=== PATIENT | female | born 1990 | race African-American/Black ===

== ENCOUNTER 2017-03-08 13:16 | Emergency (ER) | payer SELFPAY ==
[2017-03-08 14:01] LABS: #Eosinphils 0.2 thou/uL (0.0-0.7); #Lymphocytes 2.6 thou/uL (1.20-3.40); #Monocytes 0.5 thou/uL (0.11-0.59); #Neutrophils 4.2 thou/uL (1.40-6.50); %Basophils 0.2 % (0.0-1.0); %Eosinophils 2.3 % (0.0-10.0); %Lymphocytes 34.8 % (21.0-51.0); %Monocytes 6.5 % (0.0-10.0); Mean Platelet Volume 6.9 fL (7.4-10.4); Red Blood Cell (RBC) Count 3.22 mill/uL (4.20-5.40); White Blood Cell (WBC) Count 7.4 thou/uL (4.8-10.8)
[2017-03-08 14:29] LABS: Troponin I Less than 0.010 ng/mL (< 0.028)
[2017-03-08 15:20] LABS: AST (SGOT) 56 U/L (5-34); Anion Gap 11 mmol/L (10-20)
[2017-03-08 15:24] LABS: ALT (SGPT) 25 U/L (8-55); Alkaline Phosphatase 120 U/L (40-150); BUN (Urea Nitrogen) 7 mg/dL (7.0-18.7); Bilirubin, Total 0.2 mg/dL (0.2-1.2); CK (CPK) 2121 U/L (29-168); Calc. Creatinine Clearance 0 mL/min (70-130); Calcium 8.8 mg/dL (7.8-10.44); Carbon Dioxide 22 mmol/L (22-29); Chloride 107 mmol/L (98-107); Estimated GFR-MDRD Greater than 90; Globulin 3.1 g/dL (2.4-3.5); Lipase 35 U/L (8-78); Protein, Total 6.6 g/dL (6.0-8.3)
--- NOTE | 2017-03-08 15:44 | RAD ---
FRONTAL VIEW CHEST: Date: 03/08/17 No prior comparison. INDICATION: Chest pain. FINDINGS: The cardiac silhouette is accentuated by portable technique. No lobar consolidation, effusion, or pn eumothorax. Osseous structures are intact. IMPRESSION: No focal consolidation. POS: [facility]
--- NOTE | 2017-03-08 21:34 | CON ---
DATE OF CONSULTATION: 03/08/2017 PRIMARY CARE PHYSICIAN: She has been seeing Dr. Dickson before. CHIEF COMPLAINT: Chest pain. HISTORY OF PRESENT ILLNESS: Ms. Simpson is a pleasant 26-year-old female who has no significant [facility] medical history. She says that in the last couple of weeks, she has been having some chest pain off and on and she says that last night, she was arguing with someone and began having some pain in the left upper outer chest. She says it was primarily in the center, but under the left breast. Annika browne says it felt kind of tight and at that night, it was about a 10/10. There was no radiation and it lasted a few hours and then went away. She says that she again had it this morning, she relates it to feeling anxious and when she is under stress. She denies having any shortness of breath. There were no associated symptoms such as nausea, vomiting. There was no radiation. She says that she c reji to the ER to have it checked out. She denies also having any feeling of dizziness or lightheade dness and when she was in the ER, it was noted that she had an elevated CK of approximately 2000; ho wever, her troponin was negative and she had a normal EKG and there was consideration to admit her f or acute rhabdomyolysis. The patient currently has no complaints of any joint pains, no muscle ache s or muscle cramping. 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 She has not been lifting anything severely heavy recently and it seems to be about the usual amount of work that she normally does. S he does admit that sometimes it is out in the heat from time to time. Currently, the patient néstor esquivel feels fine, she may have just a little bit twinge pain in her chest, but otherwise no other comp laints. REVIEW OF SYSTEMS: Constitutional: There have been no fevers, chills, no night sweats, no weight l oss. HEENT: No headaches, no dizziness, no visual changes, no sore throat, no rhinorrhea, neck priscilla n, no adenopathy. Pulmonary: No hemoptysis, no cough, no wheezing. Cardiovascular: As the history of present illness. There is no PND, no orthopnea. No lower extrem ity edema. Gastrointestinal: No abdominal pain, no nausea, no vomiting, no change in bowels. Sosa tourinary: No urinary frequency, hematuria, no hesitancy. Neurologic: No focal weakness, numbness , no seizures. Psychiatric: She has had some anxiety symptoms, but no depression. PAST MEDICAL HISTORY: Negative. PAST SURGICAL HISTORY: Negative. ALLERGIES: To PENICILLIN. SOCIAL HISTORY: She smokes about 4 cigarettes a day and she has been smoking since age 16. She rar juany drinks. She denies any drug use. She is single. No children. FAMILY HISTORY: Significant for heart disease and diabetes as well as kidney failure. CURRENT MEDICATIONS: None and she denies any [id number] medications. She does say she takes an occasional Ambien to help her sleep. PHYSICAL EXAMINATION: GENERAL: She is alert and oriented. She appears to be in no acute distress. VITAL SIGNS: Blood pressure was 129/87, heart rate 74, respiratory rate of 18, temperature is 98.4. HEENT: Pupils are equal, round, and reactive. Extraocular muscles are intact. Sclerae are anicter ic. Throat no erythema, no exudates. NECK: No adenopathy, no bruits. LUNGS: Clear. There is no wheezing, no rales. CARDIOVASCULAR: She has a normal S1 and S2. There is no S3, no S4. No murmurs, clicks or rubs. ABDOMEN: Obese, it is soft, it is nontender, nondistended. Positive for bowel sounds. There is no rebound, no guarding. EXTREMITIES: There is no edema. MUSCULOSKELETAL: No muscle aches, no rashes. LABORATORY DATA AND X-RAY FINDINGS: EKG is sinus rhythm. There are no ST wave changes. Sodium 137 , potassium 3.9, chloride is 107, CO2 is 22, BUN of 7, creatinine 0.70, glucose is 85. CK was 2121. D-dimer was 0.33. White blood cell count 7.4, hemoglobin 8.1, hematocrit is 27, platelet count is 420. ASSESSMENT AND PLAN: This is a 26-year-old female who presents to the emergency room with some ches t pain. She says it is tightness and sometimes cramping in nature and she has a job that requires h eavy lifting on a regular basis. I suspect that she likely has developed some muscle strain with so me mild muscle injury and that would explain the elevation in the CK. She has already been given a liter of fluids here in the emergency room and she has normal renal function. Therefore, I think it is safe to discharge the patient from the emergency room with the precaution of continued hydration over the next few days, which can be done orally as the patient has no symptoms of nausea or vomiti ng and close follow up in the outpatient setting. She says even though she does not have a primary care doctor, she does have insurance and she says she can see Dr. Dickson who she had been seeing in the past. We will take her off work for the next couple of days to allow her some rest and to allo w her to rehydrate and again close follow up with her primary care physician and these instructions were all given to the patient in the ER.
== END 2017-03-08 17:35 | disposition home or self-care (01) ==
LOC: ERS 13:16
DX: M62.82 Rhabdomyolysis (principal); F31.9 Bipolar disorder, unspecified; F41.9 Anxiety disorder, unspecified; F17.210 Nicotine dependence, cigarettes, uncomplicated
CPT/HCPCS: 36415; 71010; 80053; 82553; 83690; 84484; 84703; 85025; 85379; 85652; 86140; 93005; 96360; 96361

== ENCOUNTER 2017-11-21 02:53 | Emergency (ER) | payer SELFPAY ==
[2017-11-21 03:37] LABS: #Basophils 0.1 thou/uL (0.0-0.2); #Eosinphils 0.1 thou/uL (0.0-0.7); #Lymphocytes 3.4 thou/uL (1.20-3.40); #Monocytes 0.6 thou/uL (0.11-0.59); #Neutrophils 3.4 thou/uL (1.40-6.50); %Basophils 1.1 % (0.0-1.0); %Eosinophils 1.9 % (0.0-10.0); %Lymphocytes 44.6 % (21.0-51.0); %Monocytes 7.5 % (0.0-10.0); Hemoglobin 9.6 g/dL (12.0-16.0); Mean Corpuscular HGB CONC 30.5 g/dL (32.0-36.0); Mean Corpuscular Hemoglobin 22.9 pg (27.0-31.0); Mean Corpuscular Volume 75.2 fL (78.0-98.0); Platelet Count 360 thou/uL (130-400); Red Blood Cell (RBC) Count 4.17 mill/uL (4.20-5.40); White Blood Cell (WBC) Count 7.6 thou/uL (4.8-10.8)
[2017-11-21 04:02] LABS: ALT (SGPT) 13 U/L (8-55); AST (SGOT) 16 U/L (5-34); Albumin 3.8 g/dL (3.5-5.0); Alkaline Phosphatase 104 U/L (40-150); Anion Gap 10 mmol/L (10-20); BUN (Urea Nitrogen) 9 mg/dL (7.0-18.7); Bilirubin, Total Less than 0.2 mg/dL (0.2-1.2); CK (CPK) 87 U/L (29-168); Calc. Creatinine Clearance 0 mL/min (70-130); Calcium 9.3 mg/dL (7.8-10.44); Carbon Dioxide 25 mmol/L (22-29); Chloride 107 mmol/L (98-107); Estimated GFR-MDRD Greater than 90; Globulin 2.7 g/dL (2.4-3.5); Glucose 97 mg/dL (70-105); Lipase 65 U/L (8-78); Potassium 3.9 mmol/L (3.5-5.1); Protein, Total 6.5 g/dL (6.0-8.3); Sodium 138 mmol/L (136-145)
[2017-11-21 04:05] LABS: CKMB 0.3 ng/mL (0-6.6); Troponin I Less than 0.010 ng/mL (< 0.028)
[2017-11-21] MEDS ORDERED: Ketorolac Tromethamine 60 MG/2 ML VIAL ONE (04:17)
== END 2017-11-21 04:41 | disposition home or self-care (01) ==
LOC: ERS 02:53
DX: F43.0 Acute stress reaction (principal); F41.9 Anxiety disorder, unspecified; F31.9 Bipolar disorder, unspecified; F17.210 Nicotine dependence, cigarettes, uncomplicated
CPT/HCPCS: 36415; 80053; 82553; 83690; 84484; 85025; 93005; 96372; J1885

== ENCOUNTER 2018-08-25 14:32 | Emergency (ER) | payer SELFPAY ==
--- NOTE | 2018-08-25 15:59 | RAD ---
FEXAM:Right foot 3 views HISTORY: Foot pain x2 weeks. Medial foot pain no known injury. COMPARISON: 09/27/2008 study. FINDINGS:Minimal arthritic changes at first metatarsophalangeal joint are seen. No fractures. Bony mi neralization is normal. IMPRESSION:Essentially unremarkable right foot.
== END 2018-08-25 16:14 | disposition home or self-care (01) ==
LOC: SCSER 14:32
DX: M19.071 Primary osteoarthritis, right ankle and foot (principal); F41.9 Anxiety disorder, unspecified; F17.210 Nicotine dependence, cigarettes, uncomplicated; F31.9 Bipolar disorder, unspecified; Z71.6 Tobacco abuse counseling
CPT/HCPCS: 99406

== ENCOUNTER 2020-05-01 14:50 | Emergency (ER) | payer SELFPAY | END 2020-05-01 16:58 | disposition left against medical advice (07) | LOC: ERS 14:50 | DX: Z53.21 Procedure and treatment not carried out due to patient leaving prior to being seen by health care provider (principal) ==

== ENCOUNTER 2020-05-06 07:54 | Emergency (ER) | payer SELFPAY | END 2020-05-06 09:12 | disposition home or self-care (01) | LOC: ERS 07:54 | DX: H10.9 Unspecified conjunctivitis (principal); F17.210 Nicotine dependence, cigarettes, uncomplicated | CPT/HCPCS: 99283 ==